=== PATIENT | female | born 1985 | race Caucasian/White ===

== ENCOUNTER → 2016-06-27 | Outpatient (CLI) | payer BC ==
[~2016-06-27] MED LIST: LEVOTHYROXINE25 MC1 PO; METOPROLOL SUCC25 MG PO; METOPROLOL TAR25 MG PO; PERCOCET5/325 PO; PRILOSEC20 MG PO; SYNTHROID25 MCG PO; ZOFRAN8 MG PO; ZYRTEC10 M2 PO
--- NOTE | ~2016-06-27 | CR139 ---
[facility] A Service of [facility] & [facility] RADIOLOGY TEXT RESULTS PATIENT: LORELEI RAMSEY LOCATION: [facility] : [birth year] UNIT #: [id number] AGE: [address]: KAMILAH PETERS MD SEX: F ORDER DR: [id number] [facility] [address] [place], [place] [address] [id number] O MR#: [id number] Acc #: [id number] NAME: LORELEI RAMSEY : 1985 SEX: F STUDY DATE/TIME: 06/27/2016 12:24 UNIT: [facility] ROOM: STUDY DESCRIPTION: CR Hand 2 Views Rt Attending Physician: Kamilah Peters M.D. Referring Physician: Kamilah Peters M.D. Ordering Physician: Kamilah Peters M.D. Primary Care Physician: Kamilah Peters M.D. MEDICAL IMAGING REPORT This report is preliminary unless electronic signature is present EXAM Right hand, 06/27/2016. [facility] HISTORY 31-year-old female patient with bilateral hand and wrist pain past 2 years. COMPARISON None. FINDINGS 3 views of the right hand demonstrate normal mineralization with intact cortex. Small joints are preserved with no cystic erosions, joint space narrowing or calcium deposition. I see no soft tissue swelling. IMPRESSION Negative right hand. No evidence for small joint arthropathy. Dictated by... Wili Hood M.D. THIS IS AN ELECTRONICALLY VERIFIED REPORT Wili Hood M.D. at 06/28/2016 8:10 AM MYRANDA/grace TD: 06/27/2016 21:21 JOB #: [id number] MEDICAL IMAGING REPORT Page 1 of 1 COPY
--- NOTE | ~2016-06-27 | CR138 ---
[facility] A Service of [facility] & [facility] RADIOLOGY TEXT RESULTS PATIENT: LORELEI RAMSEY LOCATION: [facility] : [birth year] UNIT #: [id number] AGE: [address]: KAMILAH PETERS MD SEX: F ORDER DR: [id number] [facility] [address] [place], [place] [address] [id number] O MR#: [id number] Acc #: [id number] NAME: LORELEI RAMSEY : 1985 SEX: F STUDY DATE/TIME: 06/27/2016 12:23 UNIT: [facility] ROOM: STUDY DESCRIPTION: CR Hand 2 Views Lt Attending Physician: Kamilah Peters M.D. Referring Physician: Kamilah Peters M.D. Ordering Physician: Kamilah Peters M.D. Primary Care Physician: Kamilah Peters M.D. MEDICAL IMAGING REPORT This report is preliminary unless electronic signature is present EXAM Left hand, 06/27/2016. [facility] HISTORY 31-year-old woman with bilateral hand pain. Pain described in the fingers and wrist and hands. Symptoms x2 years. FINDINGS Three-view imaging of the left hand demonstrates normal mineralization with intact cortex. Small joints are preserved with no small joint narrowing, cystic erosions or calcium deposition. There is no soft tissue swelling. IMPRESSION Normal left hand. No evidence for small joint arthropathy. Dictated by... Wili Hood M.D. THIS IS AN ELECTRONICALLY VERIFIED REPORT Wili Hood M.D. at 06/28/2016 8:10 AM MYRANDA/grace TD: 06/27/2016 21:15 JOB #: [id number] MEDICAL IMAGING REPORT Page 1 of 1 COPY
== END | disposition home or self-care (01) ==
LOC: CRAD 12:10
DX: M79.645 Pain in left finger(s) (principal); M79.644 Pain in right finger(s)
CPT/HCPCS: 73120